=== PATIENT | female | born 1960 | race Two or more races ===

== ENCOUNTER 2020-04-25 23:36 | Inpatient (IN) | payer OTHER ==
[~2020-04-25] VITALS: Ht 162.6 cm; Wt 79.5 kg
[2020-04-26 02:02] LABS: Basophils # (auto) 0 10 ^3/uL (0-0.2); Basophils % (auto) 0.6 % (0.0-2.0); Eosinophils # (auto) 0.1 10 ^3/uL (0-0.8); Eosinophils % (auto) 1.1 % (0.0-7.0); Hematocrit 42.1 % (36.0-46.0); Hemoglobin 13.8 g/dL (12.2-16.2); Lymphocytes # (auto) 1.9 10 ^3/uL (0.4-5.4); Lymphocytes % (auto) 26.3 % (10.0-50.0); Mean Corpuscular Hemoglobin 30.1 pg (28.0-32.0); Mean Corpuscular Hgb Conc. 32.7 g/dL (32.0-36.0); Mean Corpuscular Volume 92.3 fL (80.0-100.0); Monocytes # (auto) 0.6 10 ^3/uL (0-1.3); Monocytes % (auto) 8.7 % (0.0-12.0); Neutrophils # (auto) 4.5 10 ^3/uL (1.6-8.6); Neutrophils % (auto) 63.3 % (37.0-80.0); Nucleated Red Blood Cells % 0.1 %; Platelet Count (auto) 210 10^3/uL (140-450); Red Blood Cells 4.57 10^6/uL (4.0-5.20); White Blood Cell 7.2 10^3/uL (4.4-10.8)
[2020-04-26 02:09] LABS: Urine Bacteria NONE SEEN /hpf (None Seen); Urine Blood Negative /uL (Negative); Urine Mucus FEW (None Seen); Urine Specific Gravity 1.008 (1.001-1.035); Urine WBC 1 /hpf (0 - 5)
[2020-04-26 02:19] LABS: INR 0.93 (0.9-1.15); Partial Thromboplastin Time 25.4 sec (23.0-31.2)
[2020-04-26 02:21] LABS: Amphetamine Screen, Urine NEGATIVE (NEGATIVE); Barbiturate Scree,Urine NEGATIVE (NEGATIVE); Benzodiazephine Screen, Urine NEGATIVE (NEGATIVE); Cannabinoid Screen, Urine NEGATIVE (NEGATIVE); Cocaine Screen, Urine NEGATIVE (NEGATIVE); Opiate Scree,Urine NEGATIVE (NEGATIVE); Phencyclidine Screen, Urine NEGATIVE (NEGATIVE)
[2020-04-26 02:23] LABS: Alanine Aminotransferase 19 U/L (13-56); Albumin 3.6 g/dL (3.4-5.0); Anion Gap 6 (5-15); Aspartate Aminotransferase 12 U/L (15-37); BUN/Creatinine Ratio 20.6; Blood Urea Nitrogen 13 mg/dL (7-18); Calcium 9.2 mg/dL (8.5-10.1); Carbon Dioxide 26 mmol/L (21-32); Chloride 107 mmol/L (98-107); GFR African American 124 mL/min; GFR Non-African American 103 mL/min; Glucose 82 mg/dL (74-106); Magnesium 2.3 mg/dL (1.6-2.6); Potassium 3.6 mmol/L (3.5-5.1); Sodium 139 mmol/L (136-145)
[2020-04-26 02:28] LABS: Alkaline Phosphatase 122 U/L (45-117); Bilirubin, Total 0.5 mg/dL (0.2-1.0); Total Protein 7.3 g/dL (6.4-8.2)
[2020-04-26] MEDS ORDERED: IOHEXOL 350 MG/ML 100ML IJ ONE (02:41)
[2020-04-26] MEDS ORDERED: ONDANSETRON HCL 4 MG/2 ML VIAL IV PRN (03:00)
[2020-04-26] MEDS: LISINOPRIL 5 MG TAB PO SCH (10:00)
[2020-04-26] MEDS: ENOXAPARIN SOD 40 MG/0.4 ML SYRINGE SC SCH (10:14)
--- NOTE | 2020-04-26 17:00 | NUR ---
Telemetry admit from ER [facility] FOSTER admitted to Telemetry unit after SBAR received. Patient oriented to ALTON VERDE, CARMEL primary RN, unit, room, bed, and unit policies regarding patient care and visiting hours. Patient now on continuous telemetry monitoring, tele box # 44 and telemetry reading on arrival to unit is sinus bradycardia. Patient placed on bedside oxygen, weighed by bedscale and encouraged to call if they need something. All questions and concerns addressed, patient verbalized understanding.
[2020-04-26 18:02] VITALS: BP 148/83
--- NOTE | 2020-04-26 19:05 | NUR ---
Opening Shift Note Assumed care of patient from day shift RN, patient awake and alert and oriented x4. No S/S of distress/SOB or pain. Instructed on POC and to call for assist PRN, safety measures in place call light with in reach, bed in lowest position and side rails up x2. will continue to monitor for changes Q1hr and PRN.
--- NOTE | 2020-04-26 19:29 | NUR ---
ENDORSED CARE TO NOC SHIFT RN
--- NOTE | 2020-04-26 20:30 | NUR ---
Paged Dr. Meza patient complained of headache 10/17.
--- NOTE | 2020-04-26 21:30 | NUR ---
Dr. Meza called back new orders fro tylenol 650mg po every 4hrs prn for moderate pain. Verbalized and read back orders and Dr. jorgensen.
[2020-04-26 22:00] VITALS: BP 102/78
[2020-04-26] MEDS: ACETAMINOPHEN 325 MG TAB PO PRN (22:56)
--- NOTE | 2020-04-26 23:45 | NUR ---
Dr. Escalona assembler brazer at bed side.
[2020-04-27] VITALS (14 sets, daily range): BP systolic 99–142; BP diastolic 57–92
--- NOTE | 2020-04-27 07:35 | NUR ---
Patient resting quietly in bed with NA at bedside to take orthostatic blood pressure. Patient stable.
[2020-04-27] MEDS: ENOXAPARIN SOD 40 MG/0.4 ML SYRINGE SC SCH (09:16)
[2020-04-27] MEDS: LISINOPRIL 5 MG TAB PO SCH (09:16)
--- NOTE | 2020-04-27 09:17 | NUR ---
Scheduled medications given per order. Patient resting comfortably in bed with no complaint of any pain. Patient stable.
[2020-04-27] MEDS ORDERED: LISINOPRIL 5 MG TAB PO SCH (10:00)
--- NOTE | 2020-04-27 10:30 | NUR ---
Patient resting quietly in bed with no complaint of pain or discomfort. Patient stable at this time.
--- NOTE | 2020-04-27 12:10 | NUR ---
Patient resting comfortably in bed with no complaint of pain at this time. Patient stable.
--- NOTE | 2020-04-27 14:45 | NUR ---
Patient sitting on side of bed with no distress noted. Patient stable at this time.
--- NOTE | 2020-04-27 16:15 | NUR ---
Patient stable at this time; resting comfortably in bed with no complaint of pain.
--- NOTE | 2020-04-27 19:30 | NUR ---
Opening Shift Note Assumed care of patient, awake and alert. No S/S of distress/SOB or pain. Safety measures in place, bed in lowest locked position, bed rails raised x2, call light within reach, guard at bedside. All needs addressed at this time. Instructed on POC and to call for assist PRN, will continue to monitor for changes Q1hr and PRN.
[2020-04-28] VITALS (9 sets, daily range): BP systolic 108–134; BP diastolic 66–93
--- NOTE | 2020-04-28 00:31 | NUR ---
Dr. Escalona at bedside, orders received and being carried out.
--- NOTE | 2020-04-28 04:25 | NUR ---
Pt is expressing concerns about scheduled procedure. Pt requesting to speak with Dr. Escalona further before procedure takes place. Will relay to day RN.
[2020-04-28] MEDS: ENOXAPARIN SOD 40 MG/0.4 ML SYRINGE SC SCH (10:26)
[2020-04-28] MEDS: LISINOPRIL 5 MG TAB PO SCH (10:26)
--- NOTE | 2020-04-28 10:27 | NUR ---
Scheduled medications given per order. Patient resting comfortably in bed with no complaint of pain at this time. Patient stable.
--- NOTE | 2020-04-28 11:35 | NUR ---
Patient resting quietly in bed with no complaint of pain or discomfort. Patient stable.
--- NOTE | 2020-04-28 15:45 | NUR ---
Patient resting comfortably in bed with no complaint of any pain at this time. Patient stable.
--- NOTE | 2020-04-28 17:50 | NUR ---
Patient stable; resting quietly in bed at this time.
--- NOTE | 2020-04-28 18:24 | NUR ---
Patient resting in bed with guard at bedside. Patient denies any pain or discomfort at this time. Patient stable throughout shift.
--- NOTE | 2020-04-28 18:35 | NUR ---
Emptied 140mls from biliary drain. Addendum: 04/28/20 at 1841 by KAYLA CLEMENTS RN RN WRONG PATIENT
--- NOTE | 2020-04-28 19:25 | NUR ---
Opening Shift Note Assumed care of patient, awake and alert. No S/S of distress/SOB or pain. Safety measures in place, bed in lowest locked position, bed rails raised x2, call light within reach, guard at bedside. Instructed on POC and to call for assist PRN, will continue to monitor for changes Q1hr and PRN.
--- NOTE | 2020-04-28 20:30 | NUR ---
Pt expressing concerns regarding procedure scheduled for tomorrow. Pt spoke with Dr. Escalona, all questions answered. Pt states feeling much more comfortable, consents signed.
--- NOTE | 2020-04-29 02:37 | NUR ---
Pt HR noted to drop to 37. Rounded on patient, pt sleeping, easily arousable, pt states she feels fine and did not notice a difference. HR while awake is now 72. Will continue to monitor.
[2020-04-29 05:00] VITALS: BP_SYST 104; BP_SYST 108; BP_SYST 127; BP_DIAS 66; BP_DIAS 68; BP_DIAS 71
--- NOTE | 2020-04-29 07:00 | NUR ---
Opening Shift Note Assumed care of patient, awake and alert. A/O X 4. No S/S of distress/SOB or pain. Instructed on POC including scheduled loop recorder placement this morning in the phlebotomy lab assistant. Encouraged to call for assist PRN. Patient verbalized understanding. Safety measures in place and the call light is within reach of the patient. Will continue to monitor for changes Q1hr and PRN.
[2020-04-29 08:00] VITALS: BP 127/72
--- NOTE | 2020-04-29 08:40 | NUR ---
Patient off the floor Patient transferred off the unit via bed to the cardiac cath tech by this nurse and student nurse.
[2020-04-29] MEDS ORDERED: fentaNYL CITRATE 100 MCG/2 ML VL ONE (10:14)
[2020-04-29] MEDS ORDERED: LIDOCAINE 2%HCL (LOCAL ANESTH.) INJ 20ML MDV ONE (10:15)
[2020-04-29] MEDS ORDERED: MIDAZOLAM HCL 5 MG/ML-1ML VIAL IV ONE (10:15)
[2020-04-29] MEDS ORDERED: fentaNYL CITRATE 100 MCG/2 ML VL IV ONE (10:15)
[2020-04-29] MEDS ORDERED: MIDAZOLAM HCL 1MG/1ML-2 ML VIAL ONE (10:15)
--- NOTE | 2020-04-29 10:45 | NUR ---
Received from Ekaterina Barroso RN. Pt. is awake and oriented to person, place and event. LEFT upper chest dressing CDI with no swelling or redness. Respirations even and unlabored. Moves all extremities spontaneously but keeps LEFT shoulder immobilized, as instructed. IV to RIGHT AC intact; site benign. Pt. instructed re: procedure outcome and plan of care; verbalized understanding and is compliant. States has minor surgical site discomfort only, NAD noted. physics technical officer at bedside.
--- NOTE | 2020-04-29 11:05 | NUR ---
Remains stable post-procedure. Awake and alert with no change in respirations or surgical area.
[2020-04-29] MEDS ORDERED: LIDOCAINE 2%HCL (LOCAL ANESTH.) INJ 10ml MDV IJ ONE (11:15)
--- NOTE | 2020-04-29 11:20 | NUR ---
Patient off the unit Patient in the warehouse general laborer for procedure. Addendum: 04/29/20 at 1123 by Teri Maya RN RN Amended: Links added.
--- NOTE | 2020-04-29 11:24 | NUR ---
Patient off the unit Patient in grass farm laborer for procedure. Addendum: 04/29/20 at 1125 by Teri Maya RN RN Amended: Links added.
--- NOTE | 2020-04-29 11:25 | NUR ---
SBAR report given to CARMEL Williamson.
[2020-04-29] MEDS: ENOXAPARIN SOD 40 MG/0.4 ML SYRINGE SC SCH (11:30)
--- NOTE | 2020-04-29 11:37 | NUR ---
Nutrition Assessment Note please see attached link for complete assessment [employer] needs BW 78 [id number] kcals (23-25kcal/kgBW), Est Protein needs: 78-85 gms/day (1.0-1.1 gm/kgBW). Will continue to monitor and reassess prn. Addendum: 04/29/20 at [address] Amended: Links added.
--- NOTE | 2020-04-29 11:45 | NUR ---
Transferred in stable condition via bed back to room with assist by yovanny Syed. Pt. endorsed to CARMEL Williamson.
[2020-04-29] MEDS: LISINOPRIL 5 MG TAB PO SCH (14:00)
[2020-04-29] MEDS: SODIUM CHLOR 0.9% PF (SALINE LOCK) 10ML VIAL/SYR IV SCH ×2 (14:00→21:11)
[2020-04-29 17:07] VITALS: BP 132/74
[2020-04-29] MEDS: ACETAMINOPHEN 325 MG TAB PO PRN (20:01)
[2020-04-29 22:00] VITALS: BP 111/63
--- NOTE | 2020-04-29 22:20 | NUR ---
ASSUMED PATIENT CARE- NOC SHIFT RECEIVED REPORT FROM SEPTEMBER RN. PATIENT IS IN BED, BED IS LOCKED AT LOWEST POSITION, BED RAILS UP X2 AND HEAD OF BED IS UP >30 DEGREES. PATIENT IS AN INMATE; GUARD IS AT BEDSIDE. BEDSIDE TABLE WITHIN REACH, CALL LIGHT WITHIN REACH. DISCUSSED POC WITH PATIENT AND INSTRUCTED PATIENT TO CALL PRN; PATIENT VERBALIZED UNDERSTANDING. WILL CONTINUE TO MONITOR Q1H AND PRN.
[2020-04-30 05:00] VITALS: BP_SYST 104; BP_SYST 90; BP_SYST 99; BP_DIAS 51; BP_DIAS 62
[2020-04-30] MEDS: SODIUM CHLOR 0.9% PF (SALINE LOCK) 10ML VIAL/SYR IV SCH (05:13)
--- NOTE | 2020-04-30 05:18 | NUR ---
ORTHOSTATIC BLOOD PRESSURES SUPINE 104/62 HR 62 STANDING 90/51 HR 79 SITTING 99/62 HR 45
--- NOTE | 2020-04-30 07:27 | NUR ---
ENDORSED PATIENT CARE TO DAY SHIFT NURSE BRENDAN BURT PATIENT IS COMFORTABLE IN BED. NO S/SX OF DISTRESS, SOB OR PAIN.
--- NOTE | 2020-04-30 07:50 | NUR ---
Opening Shift Note Assumed care of inmate patient, awake and alert. No S/S of distress/SOB or pain. Instructed on POC and to call for assist PRN, will continue to monitor for changes Q1hr and PRN. Guard at bedside for safety.
[2020-04-30 09:00] VITALS: BP 129/69
--- NOTE | 2020-04-30 09:00 | NUR ---
ORTHOSTATIC BLOOD PRESSURES SUPINE 129/69 HR 49 STANDING 140/63 HR 49 SITTING 123/73 HR 46
[2020-04-30 09:03] VITALS: BP 123/73
[2020-04-30 09:06] VITALS: BP 140/63
[2020-04-30] MEDS: LISINOPRIL 5 MG TAB PO SCH (09:41)
--- NOTE | 2020-04-30 10:30 | NUR ---
Hospitalist Rounded Dr. Meza at bedside.
[2020-04-30 10:57] VITALS: BP 129/69
--- NOTE | 2020-04-30 13:30 | NUR ---
Discharge instructions given as ordered. Encourage to follow up with PMD as instructed. All questions and concerns addressed. Patient verbalized understanding. Medication reconciliation form completed and copy given to guard. IV removed with catheter intact and pressure dressing applied. Telemetry unit returned to ICU. Patient taken to vehicle with all personal belongings, accompanied by guard. No distress noted at time of departure.
== END 2020-04-30 13:30 | DRG 261 ==
LOC: EDBD 23:36 → ER 23:45 → EEVIPCON 23:45 → TELE 23:46 → TELE-CENTR 04-26 17:16
PROVIDERS: ADMIT Internal Medicine; ATTEND Internal Medicine
PROC: 0JH602Z Insertion of Monitoring Device into Chest Subcutaneous Tissue and Fascia, Open Approach (ICD-10-PCS; principal; 2020-04-29)
DX: R55 Syncope and collapse (principal); D68.51 Activated protein C resistance; R00.1 Bradycardia, unspecified; I10 Essential (primary) hypertension; Z88.0 Allergy status to penicillin; Z88.2 Allergy status to sulfonamides
CPT/HCPCS: 33285; 36415; 70450; 70551; 71045; 71275; 72125; 80053; 80307; 81001; 82962; 83735; 83880; 84443; 84484; 85025; 85379; 85610; 85730; 93005; 93306; 93886; 99152; G0378; J2001; J2250

== ENCOUNTER 2020-05-04 16:30 | Inpatient (IN) | payer OTHER ==
[~2020-05-04] VITALS: Ht 162.6 cm; Wt 88.3 kg
[2020-05-04] MEDS ORDERED: NITROGLYCERIN 0.4 MG SL TAB SL PRN (19:15)
[2020-05-04] MEDS ORDERED: MORPHINE SULF INJ 2 MG/ML SYRINGE 1ML IV PRN (19:15)
[2020-05-04 19:20] LABS: Basophils # (auto) 0 10 ^3/uL (0-0.2); Basophils % (auto) 0.7 % (0.0-2.0); Eosinophils # (auto) 0.1 10 ^3/uL (0-0.8); Eosinophils % (auto) 1.4 % (0.0-7.0); Hematocrit 41.7 % (36.0-46.0); Hemoglobin 14.1 g/dL (12.2-16.2); Lymphocytes # (auto) 2.6 10 ^3/uL (0.4-5.4); Lymphocytes % (auto) 35.1 % (10.0-50.0); Mean Corpuscular Hemoglobin 31.3 pg (28.0-32.0); Mean Corpuscular Hgb Conc. 33.7 g/dL (32.0-36.0); Mean Corpuscular Volume 92.7 fL (80.0-100.0); Monocytes # (auto) 0.6 10 ^3/uL (0-1.3); Monocytes % (auto) 8.4 % (0.0-12.0); Neutrophils % (auto) 54.4 % (37.0-80.0); Nucleated Red Blood Cells % 0.1 %; Platelet Count (auto) 214 10^3/uL (140-450); Red Cell Distribution Width 13.7 % (11.8-14.3); White Blood Cell 7.3 10^3/uL (4.4-10.8)
[2020-05-04 19:23] LABS: Urine Bacteria NONE SEEN /hpf (None Seen); Urine Blood Negative /uL (Negative); Urine Mucus FEW (None Seen); Urine Specific Gravity 1.025 (1.001-1.035); Urine WBC 1 /hpf (0 - 5)
[2020-05-04 19:40] LABS: Alanine Aminotransferase 24 U/L (13-56); Albumin 3.6 g/dL (3.4-5.0); Anion Gap 4 (5-15); Aspartate Aminotransferase 17 U/L (15-37); BUN/Creatinine Ratio 30.6; Blood Urea Nitrogen 19 mg/dL (7-18); Calcium 8.7 mg/dL (8.5-10.1); Carbon Dioxide 27 mmol/L (21-32); Chloride 108 mmol/L (98-107); GFR African American 127 mL/min; GFR Non-African American 105 mL/min; Glucose 86 mg/dL (74-106); Potassium 3.7 mmol/L (3.5-5.1); Sodium 139 mmol/L (136-145)
[2020-05-04 19:45] LABS: Alkaline Phosphatase 117 U/L (45-117); Bilirubin, Total 0.4 mg/dL (0.2-1.0); Total Protein 7.6 g/dL (6.4-8.2)
[2020-05-04 22:00] VITALS: BP 133/77
[2020-05-04] MEDS ORDERED: ASPI-543 PO (22:53)
[2020-05-04] MEDS ORDERED: LISI-275 PO (22:53)
[2020-05-05 05:00] VITALS: BP 123/76
[2020-05-05 05:48] LABS: Basophils # (auto) 0 10 ^3/uL (0-0.2); Basophils % (auto) 0.6 % (0.0-2.0); Eosinophils # (auto) 0.1 10 ^3/uL (0-0.8); Eosinophils % (auto) 1.8 % (0.0-7.0); Hematocrit 40.5 % (36.0-46.0); Hemoglobin 13.3 g/dL (12.2-16.2); Lymphocytes # (auto) 2.1 10 ^3/uL (0.4-5.4); Lymphocytes % (auto) 36.9 % (10.0-50.0); Mean Corpuscular Hemoglobin 30.2 pg (28.0-32.0); Mean Corpuscular Hgb Conc. 32.8 g/dL (32.0-36.0); Mean Corpuscular Volume 92.2 fL (80.0-100.0); Monocytes # (auto) 0.5 10 ^3/uL (0-1.3); Monocytes % (auto) 9.5 % (0.0-12.0); Neutrophils # (auto) 2.9 10 ^3/uL (1.6-8.6); Neutrophils % (auto) 51.2 % (37.0-80.0); Nucleated Red Blood Cells % 0.1 %; Platelet Count (auto) 201 10^3/uL (140-450); Red Blood Cells 4.39 10^6/uL (4.0-5.20); Red Cell Distribution Width 13.9 % (11.8-14.3); White Blood Cell 5.7 10^3/uL (4.4-10.8)
[2020-05-05 06:03] LABS: INR 0.97 (0.9-1.15); Partial Thromboplastin Time 25.6 sec (23.0-31.2)
[2020-05-05 06:17] LABS: Albumin 3.4 g/dL (3.4-5.0); Potassium 4.1 mmol/L (3.5-5.1)
[2020-05-05 06:21] LABS: BUN/Creatinine Ratio 32.1; Bilirubin, Total 0.6 mg/dL (0.2-1.0); Total Protein 6.9 g/dL (6.4-8.2)
[2020-05-05 09:00] VITALS: BP 125/75
[2020-05-05 13:00] VITALS: BP 131/88
[2020-05-05 16:34] VITALS: BP 133/85
[2020-05-05 20:00] VITALS: BP 127/76
[2020-05-05 21:47] VITALS: BP 127/76
[2020-05-06 05:00] VITALS: BP 108/70
[2020-05-06 09:04] VITALS: BP 123/75
[2020-05-06 12:58] VITALS: BP 113/75
[2020-05-06 17:12] VITALS: BP 115/99
[2020-05-06 22:00] VITALS: BP 115/71
[2020-05-07 05:12] VITALS: BP 131/76
[2020-05-07 09:00] VITALS: BP 111/80
[2020-05-07 13:00] VITALS: BP 119/92
[2020-05-07 17:00] VITALS: BP 116/87
[2020-05-07 22:00] VITALS: BP 140/70
[2020-05-08 05:00] VITALS: BP 114/63
[2020-05-08 08:46] VITALS: BP 123/76
[2020-05-08 13:00] VITALS: BP 114/71
[2020-05-08 16:38] VITALS: BP 126/78
[2020-05-08 22:16] VITALS: BP 138/81
[2020-05-09 05:24] VITALS: BP 116/75
[2020-05-09] MEDS ORDERED: VANCOMYCIN HCL 1000 MG VL ONE ×2 (08:45→10:07)
[2020-05-09] MEDS ORDERED: fentaNYL CITRATE 100 MCG/2 ML VL ONE ×2 (08:45→09:46)
[2020-05-09] MEDS ORDERED: MIDAZOLAM HCL 1MG/1ML-2 ML VIAL ONE ×2 (08:46→10:27)
[2020-05-09] MEDS ORDERED: VANCOMYCIN 1GM/250ML 250 ML IV ONE (08:46)
[2020-05-09] MEDS ORDERED: IODIXANOL 320MG/ML 100ML BTL IV ONE (08:46)
[2020-05-09] MEDS ORDERED: LIDOCAINE 2%HCL (LOCAL ANESTH.) INJ 20ML MDV ONE (09:20)
[2020-05-09] MEDS ORDERED: HYDROmorphone HCL 2 MG/ML VL IV PRN (11:30)
[2020-05-09] MEDS ORDERED: ONDANSETRON HCL 4 MG/2 ML VIAL IV PRN (11:30)
[2020-05-09 13:00] VITALS: BP 126/87
[2020-05-09] MEDS: HYDROcodone-ACET 5/325MG TAB PO PRN ×3 (13:29→21:33)
[2020-05-09 17:00] VITALS: BP 113/76
[2020-05-09] MEDS: PANTOPRAZOLE 40 MG/10 ML VIAL INJ IV SCH (21:44)
[2020-05-09] MEDS: VANCOMYCIN 1GM/250ML 250 ML IV SCH (23:53)
[2020-05-10] MEDS: DOXYCYCLINE 100MG/250ML 250 ML IV SCH ×2 (02:12→13:22)
[2020-05-10] MEDS: HYDROcodone-ACET 5/325MG TAB PO PRN ×3 (02:27→15:12)
[2020-05-10 05:00] VITALS: BP 133/73
[2020-05-10 09:00] VITALS: BP 109/71
[2020-05-10] MEDS: VANCOMYCIN 1GM/250ML 250 ML IV SCH (09:03)
[2020-05-10] MEDS: PANTOPRAZOLE 40 MG/10 ML VIAL INJ IV SCH ×2 (09:03→23:29)
[2020-05-10 13:00] VITALS: BP 130/79
[2020-05-10 13:18] VITALS: BP 130/79
[2020-05-10 20:33] VITALS: BP 132/85
[2020-05-10 21:00] VITALS: BP 132/87
[2020-05-11] MEDS: DOXYCYCLINE 100MG/250ML 250 ML IV SCH (02:24)
[2020-05-11] MEDS: HYDROcodone-ACET 5/325MG TAB PO PRN (03:00)
[2020-05-11 05:00] VITALS: BP 142/76
== END 2020-05-11 07:55 | DRG 243 ==
LOC: ER 16:30 → EEVIPCON 16:30 → TELE 19:12 → TELE-WESTW 22:20
PROVIDERS: ADMIT Internal Medicine; ATTEND Internal Medicine
PROC: 0JH606Z Insertion of Pacemaker, Dual Chamber into Chest Subcutaneous Tissue and Fascia, Open Approach (ICD-10-PCS; principal; 2020-05-09)
PROC: 02HK3JZ Insertion of Pacemaker Lead into Right Ventricle, Percutaneous Approach (ICD-10-PCS; 2020-05-09)
PROC: 02H63JZ Insertion of Pacemaker Lead into Right Atrium, Percutaneous Approach (ICD-10-PCS; 2020-05-09)
PROC: 0JPT32Z Removal of Monitoring Device from Trunk Subcutaneous Tissue and Fascia, Percutaneous Approach (ICD-10-PCS; 2020-05-09)
PROC: B5171ZZ Fluoroscopy of Left Subclavian Vein using Low Osmolar Contrast (ICD-10-PCS; 2020-05-09)
DX: I49.5 Sick sinus syndrome (principal); D68.51 Activated protein C resistance; R55 Syncope and collapse; I10 Essential (primary) hypertension; Z20.828 Contact with and (suspected) exposure to other viral communicable diseases
CPT/HCPCS: 36415; 71045; 71046; 80053; 81001; 83880; 84484; 85025; 85610; 85730; 87081; 93005; 99152; 99153; C1785; C9113; G0378; J2250; J3490; Q9967